=== PATIENT | female | born 1960 | race Caucasian/White ===

== ENCOUNTER 2019-09-16 14:57 | Outpatient (CLI) | payer OTHER ==
[2019-09-16 16:06] VITALS: BP 122/70
--- NOTE | 2019-09-16 16:06 | SLEEP CARE CONSULTATION ---
Information from patient questionnaire entered by Lillian Stone. I have reviewed and concur with the information entered by Lillian Stone. This document represents the service I personally performed and the decisions made by me, Jazlyn Paniagua RN, MSN, GUNITE [employer]ER. History of Present Illness Reason for Visit: Previously diagnosed sleep apnea, sleep apnea on CPAP therapy, Re-establish care (stopped using CPAP about 3 years ago due to discomfort of using the PAP and unaware what that was. ) Chief Complaint: reports: Unrefreshed sleep, Snoring, Observed pauses in breathing, Fatigue Duration of Symptoms: since 2004 Usual bedtime: 12am Time it takes to fall asleep: 5 minutes Snores at night: Yes Observed to quit breathing while asleep: Yes Sleeps alone due to snoring: No Number of times waking at night: 2 Reasons for waking at night: reports: Bathroom Toss, Turn, or Twitch while sleeping: Yes Recalls having dreams: Yes Usually gets out of bed at: 0900 Feels refreshed in the morning: No Morning headache: No Sleepy or fatigued during the day: Yes Ever fallen asleep while driving: No Takes day naps: Yes (2 times a month about 60-90 minutes) Dreams during day naps: No Prior sleep studies: Yes Year and Where: [facility] - Parasomnia Symptoms Ever been unable to move upon waking from sleep: No Walks in sleep: No Talks in sleep: No Ever acted out dreams in sleep: No Ever felt weak in the knees when startled or emotional: No Bothered by creepy, crawly, restless sensations in legs: No Problems with memory or concentration: No CPAP Compliance Data - Data Reviewed with Patient Average duration of nightly device use: 11 minutes 54 seconds Compliance rate %: 0 (2 days September 2016) Current pressure setting (cmH2O): 14 Humidity settin Heated hose settin Subjective Current pressure setting perceived as: comfortable Initial [place] Sleepiness Scale score: 9 Past Medical History Past Medical History: reports: Hypertension (borderline), Diabetes (borderline), GERD (none presently ) Social History The patient's occupation is NOT EMPLOYED. Patient is and lives in [place]. Have you smoked in the past 12 months: No Alcohol use: No Caffeine use: Yes Caffeine amount and frequency: 3-4 cans/day - soda or tea Family History Family history of sleep disordered breathing: No Allergies and Home Medications Known drug allergies: Yes (penicillin - sulfa ) Home medication list reviewed: Yes Allergy and home medication list: multivitamin daily vitamin D3, K2 daily Vitamin C 100mg daily Vitamin B complex plus daily Apple cider vinegar capsule daily citalopram 1 tab daily loratadine 10mg daily Review of Systems Weight gain over past 5 years: 35-40 Cardiovascular: reports: high blood pressure (borderline), leg or foot swelling (ankle sometimes) Urinary: reports: incontinence, frequency, urgency Psychiatric: reports: anxiety Ear/Nose/Throat: reports: nasal congestion, sinus problems, tonsillectomy, wisdom teeth removed. denies: dry mouth/throat (mornings) Endocrine: reports: sluggishness, increased urination Immunologic: reports: sneezing Physical Exam Blood Pressure: 122/70 Cuff size: long Heart Rate: 102 O2 Saturation: 98 Height: 5 ft 4.6 in Weight: 262 lb 3.2 oz Weight change since last visit: gained 46 pounds Body Mass Index: 44.1 BMI Classification: Obesity Class 3 Neck circumference: 16.75 HEENT: No craniofacial malformation Nostrils: partially obstructed Turbinates: normal Septum: midline Mouth and throat: narrow oropharynx Soft palate: long Hard palate: normal Uvula: normal Uvula visualization: 0% Mallampati Class IV Tongue: enlarged in size with teeth lawler on lateral edges Tonsils: absent bilaterally Chin and jaw: normal size and position (underbite) Neck: normal w/o lymphadenopathy or thyromegaly Heart: regular rate and rhythm Lungs: clear bilaterally Abdomen: soft Extremities: no edema or clubbing Neurologic: intact Impression and Plan 1. Suspected Obstructive Sleep Apnea-Hypopnea Syndrome, as previously diagnosed, severe in 2009. Patient stopped CPAP in 2016 as difficult to use for unknown reason. Current symptoms are loud and irregular snoring, observed cessation of breath while asleep, frequent awakening during the night, unrefreshed sleep, and excessive daytime sleepiness. She has also gained 42 pounds which can increase her apnea risk. Narrow oropharynx and obesity are common predisposing factors for obstructive sleep apnea-hypopnea syndrome. Untreated apnea can increase risk of hypertension and diabetes. I recommend proceeding to polysomnography to confirm the diagnosis and to assess severity. If the patient has significant sleep disordered breathing, a manual CPAP titration study will also be performed to find the optimal treatment pressure. I informed the patient of what the sleep studies involve and after some discussion, obtained agreement to proceed. The pathophysiology of obstructive sleep apnea-hypopnea syndrome was discussed with the patient and health risks of cardiovascular and cerebrovascular disease if not treated. AAS brochure for obstructive sleep apnea-hypopnea syndrome given and reviewed. Risks of drowsy driving discussed in detail and patient advised to avoid long distance driving and to wire puller at the first sign of drowsiness. Patient agreed to plan. * Schedule polysomnography +- manual CPAP titration study. * Avoid long distance driving or driving when feeling sleepy. * Avoid alcohol, sedative and muscle relaxant around bedtime. * Attempt to lose weight. * Review instructions provided by trained office staff on how to prepare for the sleep study. * Return for follow-up after sleep study completed. I spent 100% of this 40 minute visit face to face with the patient with greater than 50% of this was spent time counseling the patient and coordination of care.
== END 2019-09-16 14:58 | disposition home or self-care (01) ==
LOC: SC 14:57
PROVIDERS: ATTEND Nurse Practitioner Family
DX: G47.33 Obstructive sleep apnea (adult) (pediatric) (principal); E66.9 Obesity, unspecified; Z68.41 Body mass index [BMI] 40.0-44.9, adult
CPT/HCPCS: 99204; 99212

== ENCOUNTER 2019-10-13 20:31 | Outpatient (CLI) | payer OTHER | END 2019-10-13 20:32 | disposition home or self-care (01) | LOC: SC 20:31 | PROVIDERS: ATTEND Internal Medicine Pulmonary Disease | DX: G47.33 Obstructive sleep apnea (adult) (pediatric) (principal); G47.61 Periodic limb movement disorder; E66.9 Obesity, unspecified; Z68.41 Body mass index [BMI] 40.0-44.9, adult | CPT/HCPCS: 95811 ==

== ENCOUNTER 2019-11-06 09:10 | Outpatient (CLI) | payer OTHER ==
[2019-11-06 10:32] VITALS: BP 124/68
--- NOTE | 2019-11-06 10:32 | SLEEP CARE CONSULTATION ---
Information from patient questionnaire entered by Akiko Olivas. I have reviewed and concur with the information entered by Akiko Olivas. This document represents the service I personally performed and the decisions made by me, Jazlyn Paniagua, RN, MSN, DOCTOR OF MEDICINE. History of Present Illness Initial [place] Sleepiness Scale score: 4 Current [place] Sleepiness Scale score: 5 Additional HPI information: QUYNH DENISE returns with partner for follow up of the recently performed split polysomnography/ manual titration study and informed of findings. I explained the pathophysiology behind obstructive sleep apnea. We then spent quite a bit of time discussing different treatment options. For mild obstructive sleep apnea, surgery and oral appliance are alternatives to nasal CPAP therapy but in moderate or severe cases, nasal CPAP is the most effective and reliable treatment. I reviewed the impact of weight changes on sleep apnea and strongly recommended losing weight. After some discussion, the patient opted to go with the nasal CPAP therapy. Nasal autoCPAP set at [id number] will be ordered with rationale explained until a manual titration study can be ordered as recommended by Dr. Chacon. I explained how CPAP machine works with sample devices Respironics Dreamstation and Zuora [id number] and what to expect when using the machine. Using CPAP every night in order to get used to it was emphasized. Patient advised to put CPAP mask on before getting into bed so as not to fall asleep without CPAP. To assist acclimation to CPAP use, it could also be used for a short time during day while reading or watching TV. The patient was instructed to call the CPAP supplier to discuss any mechanical problem that may occur. If the mask given is uncomfortable or is difficult to keep on through the night even with adjustment, contact the CPAP supplier as many will replace with another mask style if notified before 30 days. If snoring or perceives is not getting enough air or too much air from the machine, notify this office. AAS patient education PAP tips reviewed and given to patient. Patient prefers the Dreamstation. Patient counseled not drink alcohol less than 4 hours before bedtime as it can increase snoring and apnea. Patient does not drink alcohol. Patient was cautioned about risks of drowsy driving until sleepiness symptoms resolve. Patient denies drowsy driving. AAS patient education on snoring and sleep apnea given and reviewed at last visit. Sleep Study - Polysomnography Polysomnography findings: Physician's Impression: The quality of the study is good. CPAP was initiated 161.8 minutes into the study and titrated up from 4 cmH2O and titrated up to CPAP at 17 cmH2O. DIAGNOSTIC: The patient had slightly reduced sleep efficiency due to a few awakenings after the sleep onset.. The sleep architecture was abnormal for sleep fragmentation and reduced amount of time spent in REM sleep. Respiratory monitoring showed severe obstructive sleep apnea-hypopnea (AHI = 57.0) associated with frequent arousals, oxyhemoglobin desaturation and moderate hypoxia (cindy oxygen saturation of 79%). Baseline oxygen saturation was normal. The patient did not sleep supine during this study. Snoring was loud in intensity. There was no significant periodic limb movement of sleep. THERAPEUTIC: None of the tested pressure settings appeared adequate. The patient appeared to have tolerated positive airway pressure therapy well. The patients sleep efficiency was normal. The sleep architecture was significant REM rebound. There was mild periodic limb movement of sleep. Cardiac rhythm was normal sinus rhythm without significant arrhythmia. No abnormal behavior (parasomnia) observed during the night. CONCLUSIONS and RECOMMENDAIONS: 1. Obstructive sleep apnea-hypopnea (ICD-10 G47.33), severe, not adequately controlled with CPAP up to 17 cmH2O. The patient is recommended to return for a BiPAP titration study Allergies and Home Medications Allergy and home medication list: Citalopram 1 daily Claritin 1 tab daily multivitamin daily B12 plus daily Vitamin C 1000mg daily D3, K2 daily Applecider vinegar capsules Review of Systems Review of systems same as previous: Yes Physical Exam Blood Pressure: 124/68 Heart Rate: 77 O2 Saturation: 96 Height: 5 ft 4.6 in Weight: 264 lb 6.4 oz Body Mass Index: 44.5 BMI Classification: Obesity Class 3 Impression and Plan 1. Obstructive Sleep Apnea-Hypopnea Syndrome, severe, with lowest oxygen saturation of 79%. Obviously this is the cause of the patients symptoms of unrefreshed sleep, and excessive daytime sleepiness. Positive pressure therapy could benefit her depression and anxiety. As mentioned above, the patient will be started on nasal autoCPAP therapy with pressure set at 17-20 cmH2O until a manual titration study can be completed as the split study did not find optimal treatment pressure. Compliance guidelines also reviewed. A copy of compliance guidelines will be given for reference at check out. Because the apnea is more severe supine in previous sleep studies , I instructed to avoid sleeping supine using pillow positioning until able to start CPAP use. 2. Periodic limb movement, mild, that did not fragment patients sleep. Periodic limb movement of sleep (PLMS) is characterized by episodes of repetitive limb movements that occur during sleep and usually involve the lower limbs. The etiology is unknown but can be associated with restless leg syndrome (RLS), neuropathy, spinal cord diseases, kidney disease, rheumatological disorders, narcolepsy, obstructive sleep apnea, and REM sleep behavior disorder. Other factors that can increase PLMS and/or RLS are heredity and iron deficiency as reflected by a low serum ferritin level below 50 to 75mcg / L. Several medications can precipitate or aggravate PLMS such as selective serotonin re- uptake inhibitor antidepressants, tricyclic antidepressants, lithium, and dopamine receptor antagonists with the exception of bupropion. Caffeine can also aggravate PLMS and should be avoided. Sleep hygiene methods can also improve sleep as well as lifestyle changes such as regular exercise. Patient was advised that no treatment is needed at this time. If symptoms increase, then further evaluation is indicated. * Nasal auto CPAP therapy, pressure at 17-20 cm H2O. * Dreamstation preferred by patient * manual titration study * Attempt to lose weight. * Avoid alcohol consumption near bedtime. * Avoid supine sleep until using CPAP. * The patient is again cautioned about driving until sleepiness completely resolves. * Return one month after CPAP obtained and before manual titration study. I will assess response to therapy and compliance at that time. I spent 100% of this 40 minute visit face to face with the patient with greater than 50% of this was spent time counseling the patient and coordination of care and answering extra questions about different devices.
== END 2019-11-06 09:11 | disposition home or self-care (01) ==
LOC: SC 09:10
PROVIDERS: ATTEND Nurse Practitioner Family
DX: G47.33 Obstructive sleep apnea (adult) (pediatric) (principal); G47.61 Periodic limb movement disorder; E66.9 Obesity, unspecified; Z68.41 Body mass index [BMI] 40.0-44.9, adult
CPT/HCPCS: 99212; 99215

== ENCOUNTER 2020-05-05 13:58 | Outpatient (CLI) | payer OTHER ==
[2020-05-05 15:00] VITALS: BP 140/90
--- NOTE | 2020-05-05 15:00 | SLEEP CARE CONSULTATION ---
Information from patient questionnaire entered by Akiko Olivas. I have reviewed and concur with the information entered by Akiko Olivas. This document represents the service I personally performed and the decisions made by me, Jazlyn Paniagua, RN, MSN, SURVEY QUESTIONNAIRE DESIGNER. History of Present Illness Service Date and Time: 05/05/2020 5768 Previous diagnosis: Severe, Obstructive Sleep Apnea-Hypopnea Syndrome AHI: 57.0 (in 2018, 53.4 in 2014, 36.5 in 2008) Reason for follow up: first compliance after device update Equipment type: CPAP Equipment obtained from: [employer] Mask style: Nasal (Dream Wisp) Backup mask available: Yes Last cushion change: not since set up. Prior sleep studies: Yes Year and Where: 2018, 2014 and 2008 - [facility] Type of Sleep Study: Polysomnography CPAP Compliance Data - Data Reviewed with Patient Average duration of nightly device use: 5.95 Compliance rate %: 80 (last 30 days) Current pressure setting (cmH2O): 17-20 Humidity settin Heated hose settin Average residual AHI: 3.2 Average large leak: 0 Subjective Missed days of use due to: reports: other (nasal allergies and cough prevented use of CPAP due to post nasal drainage. New medication resolved. ) Patient concerns: reports: mask discomfort (nasal bridge soreness), air blowing in eyes (mask not fitting well even with adjustment / takes a while to get fitt ed initially), dry mouth, nose, throat (dry throat half the time), other (snaps are also a bother and irritating ears. old mask does not fit hose. ). denies: aerophagia, mask leak noise, condensation in mask/hose, nasal congestion, epistaxis Observed to snore while using device: No Current pressure setting perceived as: comfortable On therapy, patient: reports: being more awake and alert during the day, more rested overall. denies: drowsiness while driving Initial [place] Sleepiness Scale score: 4 (in 2008) Current [place] Sleepiness Scale score: 3 Allergies and Home Medications Home medication list reviewed: No (no changes in prescription medications) Review of Systems Review of systems same as previous: No (alopecia several months ago and changes in nails/ evaluation in progress) Physical Exam Blood Pressure: 140/90 Cuff size: long Heart Rate: 84 O2 Saturation: 97 Height: 5 ft 4.6 in Weight: 269 lb 12.8 oz Body Mass Index: 45.4 BMI Classification: Morbidly Obese Impression and Plan 1. Obstructive Sleep Apnea-Hypopnea Syndrome, severe, with good treatment compliance and good apnea control. On CPAP therapy, the patient is more alert and rested overall. Current mask uncomfortable causing nasal and ear irritation. thus a mask refitting was ordered. She is advised to try her old mask style to see if better until a new style can be obtained. She did not think it fit new hose and I showed her how her mask hose adaptor of current mask needs to be taken out of hose so her mask could be used. After further discussion patient will try. Until nasal redness resolved - advised to protect her nose with bandaid prior to CPAP use. There are also online nasal gel pads available. Patient's apnea severity and rationale for treatment to reduce apnea, improve sleep quality and reduce cardiovascular and cerebrovascular events was reviewed. Currently patients BMI is 44.5 obesity class . Obesity increases the risk of apnea, CPAP pressure requirements and overall health risks especially cardiovascular and diabetes. Thus patient is advised to lose weight. Weight loss can be done with reducing portion size A diet consultation can be helpful in achieving optimal weight loss goals. Patient encouraged to discuss their weight loss goals with their PCP and consider a referral to a hat blocking operator. Patient does not like wearing mask for "Covid 19" precautions. I explained rationale for her protection and others when outside her home. 2. Elevated blood pressure today 140/90. Patient states she is not on medications for her blood pressure. She does not monitor at home. When asked if elevated in past, she states it was elevated about 2 months at her PCP last visit. Thus I reviewed the health risks of hypertension not treated and advised her to follow up with her PCP for further evaluation. She agreed with plan. * Continue auto CPAP pressure at 17-20 cmH2O * Follow up with PCP for further evaluation of elevated blood pressure * Mask fitting * Notify me if snoring with mask or feeling that the pressure is too much or too little * Attempt to lose weight * consider diet consultation. * Call this office if any problems using CPAP * Return for follow up in 1 year , or sooner if concerns arise Visit Type: In Office Time Spent with Patient (minutes): 25 Provider Statement: I spent 100% of the Face to Face Visit with the patient with greater than 50% spent counseling the patient and coordination of care.
== END 2020-05-05 13:59 | disposition home or self-care (01) ==
LOC: SC 13:58
PROVIDERS: ATTEND Nurse Practitioner Family
DX: G47.33 Obstructive sleep apnea (adult) (pediatric) (principal); R03.0 Elevated blood-pressure reading, without diagnosis of hypertension; E66.01 Morbid (severe) obesity due to excess calories; Z68.42 Body mass index [BMI] 45.0-49.9, adult
CPT/HCPCS: 99212; 99214

== ENCOUNTER 2024-02-08 10:54 | Outpatient (CLI) | payer MEDICARE, OTHER ==
[2024-02-08 18:03] LABS: BASOPHILS # (AUTO) 0.1 10^3/uL (0.0-0.1); BASOPHILS % (AUTO) 0.7 %; EOSINOPHILS # (AUTO) 0.5 10^3/uL (0.0-0.7); EOSINOPHILS % (AUTO) 5.5 %; HCT - HEMATOCRIT 44.7 % (37.0-47.0); HGB - HEMOGLOBIN 14.1 g/dL (12.0-16.0); LYMPHOCYTES # (AUTO) 1.8 10^3/uL (1.5-3.5); LYMPHOCYTES % (AUTO) 20.7 %; MEAN CORPUSCULAR HEMOGLOBIN 28.5 pg (27.0-31.0); MEAN CORPUSCULAR HGB CONC 31.5 g/dL (32.0-36.0); MEAN CORPUSCULAR VOLUME 90.5 fL (81.0-99.0); MEAN PLATELET VOLUME 10.7 fL (7.9-10.8); MONOCYTES # (AUTO) 0.5 10^3/uL (0.0-1.0); MONOCYTES % (AUTO) 5.7 %; NEUTROPHILS # (AUTO) 5.9 10^3/uL (1.5-6.6); NEUTROPHILS % (AUTO) 67.1 %; PLT - PLATELET COUNT 200 10^3/uL (130-450); RED BLOOD COUNT 4.94 10^6/uL (4.20-5.40); WHITE BLOOD COUNT 8.8 x10^3/uL (4.8-10.8)
[2024-02-08 18:48] LABS: ALBUMIN 4.3 g/dL (3.2-5.5); ALBUMIN/GLOBULIN RATIO 1.5 (1.0-2.2); ALKALINE PHOSPHATASE 77 IU/L (42-121); ALT ALANINE AMINOTRANSFERASE 16 IU/L (10-60); AST ASPARTATE AMINOTRANSFERASE 17 IU/L (10-42); BILIRUBIN,TOTAL 1.2 mg/dL (0.2-1.0); BUN - BLOOD UREA NITROGEN 13 mg/dL (6-20); CALCIUM 9.8 mg/dL (8.5-10.3); CARBON DIOXIDE - CO2 28 mmol/L (21-32); CHLORIDE 103 mmol/L (101-111); CHOL/HDL RATIO 4.4 (<4.4); CHOLESTEROL 220 mg/dL; CREATININE 0.6 mg/dL (0.6-1.3); GFR - MDRD 100 (>89); GLUCOSE 100 mg/dL (74-104); HDL CHOLESTEROL 50 mg/dL; LDL CHOLESTEROL,CALCULATED 126 mg/dL; LDL/HDL RATIO 2.5 (<4.4); POTASSIUM 3.9 mmol/L (3.5-4.5); SODIUM 139 mmol/L (135-145); TOTAL PROTEIN 7.1 g/dL (6.4-8.9); TRIGLYCERIDES 219 mg/dL (48-352); VLDL CHOLESTEROL 44 mg/dL
[2024-02-08 18:59] LABS: THYROID STIMULATING HORMONE 1.23 uIU/mL (0.34-5.60)
[2024-02-08 20:52] LABS: ESTIMATED AVERAGE GLUCOSE 105 mg/dL (70-100); HEMOGLOBIN A1c% 5.3 % (4.27-6.07)
== END 2024-02-08 10:55 | disposition home or self-care (01) ==
LOC: LAB.N 10:54
PROVIDERS: ATTEND Physician Assistant
DX: G62.9 Polyneuropathy, unspecified (principal); E66.9 Obesity, unspecified; R60.0 Localized edema
CPT/HCPCS: 36415; 80053; 80061; 82607; 83036; 83721; 84443; 85025